=== PATIENT | female | born 1950 | race Caucasian/White ===

== ENCOUNTER 2023-01-27 11:06 | Day surgery (SDC) | payer OTHER ==
[2023-01-23 11:32] LABS: BASOPHILS % (AUTO) 0.2 % (0-1); EOSINOPHILS # (AUTO) 0.1 X10'3 (0-0.9); EOSINOPHILS % (AUTO) 1.4 % (0-6); HEMOGLOBIN 12.5 g/dl (12.0-16.0); LYMPHOCYTES # (AUTO) 1.1 X10'3 (1.1-4.8); LYMPHOCYTES % (AUTO) 18.8 % (21-51); MEAN CORPUSCULAR HEMOGLOBIN 31.4 PG (27.0-31.0); MEAN CORPUSCULAR HGB CONC 32.8 g/dL (33.0-36.5); MEAN CORPUSCULAR VOLUME 95.7 FL (78-98); MEAN PLATELET VOLUME 8.6 FL (7.4-10.4); MONOCYTES # (AUTO) 0.4 X10'3 (0-0.9); MONOCYTES % (AUTO) 7.3 % (2-12); NEUTROPHILS # (AUTO) 4.4 X10'3 (1.8-7.7); NEUTROPHILS % (AUTO) 72.3 % (42-75); PLATELET COUNT 262 X10'3 (140-440); RED BLOOD COUNT 3.98 X10'6 (4.20-5.60); RED CELL DISTRIBUTION WIDTH 13.4 % (11.5-14.5); WHITE BLOOD COUNT 6.1 X10'3 (4.5-11.0)
[2023-01-23 11:46] LABS: APTT 28 SECONDS (22-32)
[2023-01-23 11:49] LABS: ALBUMIN 3.4 G/DL (3.4-5.0); ANION GAP 4 (8-16); BLOOD UREA NITROGEN 18 MG/DL (7-18); BUN/CREATININE RATIO 20.5 (10.0-20.0); CHLORIDE 104 MMOL/L (99-107); CHOL/HDL RATIO 3.6 (0.00-4.99); CHOLESTEROL 135 MG/DL (0-200); CREATININE 0.88 MG/DL (0.40-0.90); GLUCOSE 109 MG/DL (70-104); HDL CHOLESTEROL 38 MG/DL (35-60); LDL CHOLESTEROL 78 MG/DL (50-100); POTASSIUM 3.8 MMOL/L (3.5-5.1); SODIUM 141 MMOL/L (135-145); TOTAL CARBON DIOXIDE 32.7 MMOL/L (24-32); TRIGLYCERIDES 126 MG/DL (20-135); eGFR 63 ML/MIN
[2023-01-27] VITALS (9 sets, daily range): BP systolic 106–143; BP diastolic 56–82; PULSE 64–85; RESP 16; TEMP 97.4; O2SAT 92–97
[~2023-01-27] VITALS: Ht 154.9 cm; Wt 77.7 kg
[2023-01-27] MEDS ORDERED: LORazepam 0.5 MG tablet PO PRN (11:30)
[2023-01-27] MEDS ORDERED: normal saline 1,000 ML IV SCH (11:30)
[2023-01-27] MEDS ORDERED: diphenhydrAMINE 25mg capsule PO PRN (11:30)
[2023-01-27] MEDS ORDERED: nitroGLYCERIN-Tridil 50MG/D5W 250 ML IV ONE (12:00)
[2023-01-27] MEDS ORDERED: iohexol 350MG/ML 100ml bottle IV ONE ×2 (12:01→14:31)
[2023-01-27] MEDS ORDERED: verapamil 2.5 mg/ml inj IV ONE (12:01)
[2023-01-27] MEDS ORDERED: heparin 1,000unit/ml 10ml vial 10 ML ONE ×2 (12:01→14:38)
[2023-01-27] MEDS ORDERED: LIDOcaine 1% (10mg/ml) 2ml vial ONE (12:01)
[2023-01-27] MEDS ORDERED: ACET-890 PO (12:07)
[2023-01-27] MEDS ORDERED: METH-797 PO (12:07)
[2023-01-27] MEDS ORDERED: LOSA25TA41 PO (12:07)
[2023-01-27] MEDS ORDERED: ATOR-2 PO (12:07)
[2023-01-27] MEDS ORDERED: ISOS30TA84 PO (12:07)
[2023-01-27] MEDS ORDERED: ASPI81TA52 PO (12:07)
[2023-01-27] MEDS ORDERED: LEVO112T52 PO (12:07)
[2023-01-27] MEDS ORDERED: OMEP40CA21 PO (12:07)
[2023-01-27] MEDS ORDERED: midazolam 1 mg/ML 2ml injection ONE (13:22)
[2023-01-27] MEDS ORDERED: fentaNYL/PF 50MCG/1 ML 2ML syringe ONE ×2 (13:23→15:20)
[2023-01-27] MEDS ORDERED: LIDOcaine 1% 30ml preserv. free vial ONE (14:00)
[2023-01-27] MEDS ORDERED: clopidogrel 300mg tablet ONE (14:57)
[2023-01-27] MEDS ORDERED: aspirin 325mg tablet ONE (14:57)
[2023-01-27] MEDS ORDERED: ondansetron/PF 4mg/2ml inj ONE (15:22)
[2023-01-27] MEDS ORDERED: HYDROcodone/acetaminophen 5mg/325mg tablet PO PRN (15:55)
[2023-01-27] MEDS ORDERED: HYDROcodone/acetaminophen 10/325mg tab PO PRN (15:55)
== END 2023-01-27 17:55 | disposition home or self-care (01) ==
LOC: SSTAY O 11:06
PROVIDERS: ATTEND Student in an Organized Health Care Education/Training Program
DX: T82.855A Stenosis of coronary artery stent, initial encounter (principal); I25.110 Atherosclerotic heart disease of native coronary artery with unstable angina pectoris; I10 Essential (primary) hypertension; E78.5 Hyperlipidemia, unspecified; G47.33 Obstructive sleep apnea (adult) (pediatric); E11.9 Type 2 diabetes mellitus without complications; I65.29 Occlusion and stenosis of unspecified carotid artery; Z88.8 Allergy status to other drugs, medicaments and biological substances; Z79.899 Other long term (current) drug therapy; Z79.82 Long term (current) use of aspirin; Y84.0 Cardiac catheterization as the cause of abnormal reaction of the patient, or of later complication, without mention of misadventure at the time of the procedure; Y92.89 Other specified places as the place of occurrence of the external cause
CPT/HCPCS: 36415; 80048; 80061; 85025; 85610; 85730; 92921; 93005; 93458; 99152; 99153; C1874; C9600; J1644; J2250; J2405; J3010; J3490; J7030; Q0163; Q9967; 92928; A4615; A6258; C1725; C1751; C1760; C1769; C1894